=== PATIENT | female | born 1990 | race Caucasian/White ===

== ENCOUNTER 2016-11-24 15:52 | Emergency (ER) | payer OTHER ==
[~2016-11-24] VITALS: Ht 154.9 cm; Wt 54.4 kg
--- NOTE | 2016-11-24 17:11 | ED EAR COMPLAINT ---
History of Present Illness General Chief Complaint: Ear Complaints Stated Complaint: EAR PAIN, CONGESTION Source: patient, old records Exam Limitations: no limitations Vital Signs & Intake/Output Vital Signs & Intake/Output Vital Signs Date Time Temp Pulse Resp B/P Pulse O2 O2 Flow FiO2 Ox Delivery Rate 11/24 1607 98.8 96 18 119/79 99 Room Air Allergies Coded Allergies: NO KNOWN ALLERGIES (02/14/12) Reconcile Medications Amoxicillin 875 MG TABLET 1 TAB PO BID sinusitis Oxymetazoline HCl (Afrin) 0.05 % SPRAY 2 SPRAY NASB BID sinusitis Prednisone 20 MG TABLET 1 TAB PO BID sinusitis Triage Note: PT TO ER C/C B/L EAR PAIN AND HEARING LOSS X 1 WEEK. +COUGH. AFEBRILE Triage Nurses Notes Reviewed? yes Onset: 2 weeks Duration: week(s):, constant, continues in ED, getting worse Timing: recent history Severity: moderate No Modifying Factors: none Associated Symptoms: cough LMP (ages 10-50): unknown : No Patient currently breastfeeds: No HPI: 2 weeks prior to admission patient complains of nasal congestion sore throat increasing left ear pain with decreasing hearing. She denies fever chills nausea vomiting diarrhea abdominal pain chest pain shortness breath headache dysuria rash bleeding . Past History Travel History Traveled to [place] past 21 day No Medical History Any Pertinent Medical History? none Surgical History Surgical History: non-contributory Psychosocial History What is your primary language Kyrgyz Tobacco Use: Current Daily Use Daily Tobacco Use Amount/Type: => 5 Cigarettes daily Family History Hx Contributory? No Review of Systems Review of Systems Constitutional: Reports: see HPI, malaise. EENTM: Reports: see HPI, ear pain, hearing changes, nasal congestion, throat pain. Respiratory: Reports: see HPI, cough. Cardiovascular: Reports: no symptoms. GI: Reports: no symptoms. Genitourinary: Reports: no symptoms. Musculoskeletal: Reports: no symptoms. Skin: Reports: no symptoms. Neurological/Psychological: Reports: no symptoms. Hematologic/Endocrine: Reports: no symptoms. Immunologic/Allergic: Reports: no symptoms. All Other Systems: Reviewed and Negative Physical Exam Physical Exam General Appearance: well developed/nourished, mild distress Head: atraumatic Eyes: Bilateral: normal appearance, PERRL, EOMI. Ears: Left: Tympanic red, Tympanic bulging. Right: Tympanic dull. Nose: discharge Mouth/Throat: pharynx swelling, tonsillar swelling Neck: normal inspection, supple, lymphadenopathy (R), lymphadenopathy (L) Cardiovascular/Respiratory: normal breath sounds, regular rate/rhythm Back: normal inspection, normal range of motion, no vertebral tenderness Neurologic/Psych: awake, alert, oriented x 3, normal mood/affect Skin: intact, normal color, warm/dry Progress Differential Diagnoses I considered the following diagnoses in my evaluation of the patient: otitis media otitis externa sinusitis Plan of Care: Current Medications Sig/Carlos Start time Last Medication Dose Stop Time Status Admin Amoxicillin 750 MG ONCE ONE 11/24 1714 UNVr (Amoxil) 11/24 1715 Ibuprofen 600 MG ONCE ONE 11/24 1714 UNVr (Motrin) 11/24 1715 Oxymetazoline HCl 2 SPRAY ONCE ONE 11/24 1714 UNVr (Afrin) 11/24 1715 Prednisone 60 MG ONCE ONE 11/24 1714 UNVr 11/24 1715 Initial ED EKG: none Departure Departure Time of Disposition: 1717 Disposition: HOME OR SELF CARE Condition: Stable Clinical Impression Primary Impression: Otitis media Qualifiers: Otitis media type: unspecified Laterality: bilateral Chronicity: unspecified Qualified Code: H66.93 - Otitis media, unspecified, bilateral Secondary Impressions: Sinusitis, acute Qualifiers: Sinusitis location: unspecified location Recurrence: not specified as recurrent Qualified Code: J01.90 - Acute sinusitis, unspecified Referrals: PATIENT HAS NO PRIMARY CARE DR (PCP/Family) Departure Forms: Customer Survey General Discharge Information Prescriptions: Current Visit Scripts Amoxicillin 1 TAB PO BID #20 TAB Prednisone 1 TAB PO BID #10 TAB Oxymetazoline HCl (Afrin) 2 SPRAY NASB BID #30 ML Ibuprofen 1 TAB PO Q6PRN PRN pain #50 TAB with food
[2016-11-24] MEDS ORDERED: AMOXICILLIN875 M1 PO (17:24)
[2016-11-24] MEDS ORDERED: PREDNISONE20 M1 PO (17:24)
[2016-11-24] MEDS ORDERED: AFRIN30 ML NASB (17:24)
[2016-11-24] MEDS ORDERED: IBUPROFEN600 M1 PO (17:25)
[2016-11-24 17:33] VITALS: BP 100/58
== END 2016-11-24 17:37 ==
LOC: ERH 15:52
DX: H66.93 Otitis media, unspecified, bilateral (principal); J01.90 Acute sinusitis, unspecified; F17.210 Nicotine dependence, cigarettes, uncomplicated

== ENCOUNTER 2017-01-10 23:26 | Emergency (ER) | payer OTHER ==
[~2017-01-10] VITALS: Ht 154.9 cm; Wt 53.1 kg
[~2017-01-10 23:26] MED LIST: AFRIN30 ML NASB; AMOXICILLIN875 M1 PO; IBUPROFEN600 M1 PO; PREDNISONE20 M1 PO
--- NOTE | 2017-01-10 23:39 | ED GI/GU/ABDOMINAL COMPLAINT ---
History of Present Illness General Chief Complaint: Abdominal Pain/Flank Pain Stated Complaint: RT SIDE ABD PAIN X'S 4 HRS Source: patient Exam Limitations: no limitations Vital Signs & Intake/Output Vital Signs & Intake/Output Vital Signs Date Time Temp Pulse Resp B/P Pulse O2 O2 Flow FiO2 Ox Delivery Rate 01/10 2340 97.9 93 20 112/69 97 Room Air ED Intake and Output 01/11 0000 01/10 1200 Intake Total 0 Output Total Balance 0 Intake, Oral 0 Patient 117 lb Weight Allergies Coded Allergies: NO KNOWN ALLERGIES (02/14/12) Reconcile Medications Amoxicillin 875 MG TABLET 1 TAB PO BID sinusitis Doxycycline Hyclate 100 MG TABLET 1 TAB PO BID PID Ibuprofen 800 MG TABLET 1 TAB PO TID PRN PAIN Ibuprofen 600 MG TABLET 1 TAB PO Q6PRN PRN pain with food Metronidazole (Flagyl) 500 MG TABLET 1 TAB PO BID PID Oxycodone HCl/Acetaminophen (Percocet 5-325 MG Tablet) 5 MG-325 MG TABLET 1 TAB PO Q4-6 PRN BREAKTHROUGH PAIN Oxymetazoline HCl (Afrin) 0.05 % SPRAY 2 SPRAY NASB BID sinusitis Prednisone 20 MG TABLET 1 TAB PO BID sinusitis Triage Nurses Notes Reviewed? yes ? N Is pt currently ? No Onset: Abrupt Duration: hour(s): (4) Timing: single episode today Quality/Severity: sharpness, severe Location: right lower quadrant Radiation: back Activities at Onset: AT WORK Prior Abdominal Problems: none No Modifying Factors: none HPI: 26-year-old female with sudden onset of right lower quadrant abdominal pain 4 hours prior to arrival while at work. Pain is severe, sharp, 10 x 10. She feels some radiation to her right lower back. Last vessel. Was on December 25. Denies chance of as she has history of bilateral tubal ligation. History of previous ovarian cyst rupture. Denies any history of previous renal stones. She was feeling fine until 4 hours ago. She took 4 OTC motrin without relief. Past History Medical History Any Pertinent Medical History? see below for history Gastrointestinal: OVARIAN CYST Surgical History Surgical History: tubal ligation Psychosocial History What is your primary language Setswana Family History Hx Contributory? No Review of Systems Review of Systems Constitutional: Denies: chills, fever. EENTM: Reports: no symptoms. Respiratory: Denies: short of breath. Cardiovascular: Denies: chest pain. GI: Reports: abdominal pain, nausea. Genitourinary: Reports: no symptoms. Musculoskeletal: Reports: back pain. Skin: Reports: no symptoms. Neurological/Psychological: Reports: no symptoms. Hematologic/Endocrine: Denies: bruising, bleeding, polyuria, polydipsia. Immunologic/Allergic: Denies: splenectomy. All Other Systems: Reviewed and Negative Physical Exam Physical Exam General Appearance: well developed/nourished, alert, awake Head: atraumatic, normal appearance Eyes: Bilateral: normal appearance, PERRL, EOMI. Ears, Nose, Throat, Mouth: hearing grossly normal, moist mucous membrane Neck: normal inspection, supple, full range of motion Respiratory: normal breath sounds, chest non-tender, no respiratory distress Cardiovascular: regular rate/rhythm Peripheral Pulses: 2+ radial (R), 2+ radial (L) Gastrointestinal: soft, tenderness (RLQ), POSITIVE REBOUND/GUARDING Extremities: normal range of motion Neurologic/Psych: no motor/sensory deficits, awake, alert, oriented x 3 Skin: intact, normal color, warm/dry Core Measures ACS in differential dx? No Severe Sepsis Present: No Septic Shock Present: No Progress Differential Diagnosis: appendicitis, diverticulitis, ectopic , ischemic bowel, kidney stone, ovarian cyst, ovarian torsion, PID/cervicitis, perforated viscous Plan of Care: Orders Procedure Date/time Status TRICHOMONAS 01/11 434 Active POTASSIUM HYDROXIDE (EUFEMIA) 01/11 434 Active GENITAL CULTURE 01/11 434 Active CHLAMYDIA-GC DNA PROBE 01/11 434 Active URINALYSIS 01/11 7 Complete PARTIAL THROMBOPLASTIN TIME 01/11 7 Complete PROTHROMBIN TIME 01/11 7 Complete HUMAN BETA HCG SCREEN 01/11 7 Complete COMPREHENSIVE METABOLIC PANEL 01/11 7 Complete CBC WITHOUT DIFFERENTIAL 01/11 7 Complete Current Medications Sig/Carlos Start time Last Medication Dose Stop Time Status Admin Oxycodone/ 1 TAB ONCE ONE 01/11 0500 UNVr Acetaminophen 01/11 0501 (Percocet) Azithromycin 1,000 MG ONE ONE 01/11 0445 UNVr (Zithromax) 01/11 446 Laboratory Tests 01/11/17 0013: Anion Gap 9, Estimated GFR > 60, BUN/Creatinine Ratio 15.0, Glucose 104 H, Calcium 10.4 H, Total Bilirubin 0.5, AST 21, ALT 27, Alkaline Phosphatase 43, Total Protein 6.8, Albumin 4.5, Globulin 2.3, Albumin/Globulin Ratio 2.0, Total Beta HCG NEGATIVE, PT 10.5, INR 1.00, APTT 44 H, CBC w Diff NO MAN DIFF REQ, RBC 4.14 L, MCV 88.9, MCH 30.0, RDW 13.4, MPV 8.4, Gran % 60.5, Lymphocytes % 31.6, Monocytes % 6.1, Eosinophils % 1.7, Basophils % 0.1, Absolute Granulocytes 5.5, Absolute Lymphocytes 2.9, Absolute Monocytes 0.6, Absolute Eosinophils 0.2, Absolute Basophils 0, PUBS MCHC 33.8, Urinalysis HEAVY H, Urine Color YEL, Urine Clarity CLDY H, Urine pH 7.5, Ur Specific [place] 1.020, Urine Protein NEG, Urine Ketones NEG, Urine Nitrite NEG, Urine Bilirubin NEG, Urine Urobilinogen 0.2, Ur Leukocyte Esterase NEG, Ur Microscopic SEDIMENT EXAMINED, Ur Epithelial Cells FEW, Urine Hemoglobin NEG, Urine Glucose NEG Microbiology 01/11 434 GENITAL: GC DNA Probe - ORD 01/11 434 GENITAL: Chlamydia DNA Probe (LYNNE) - ORD 01/11 434 GENITAL: EUFEMIA Preparation - ORD 01/11 434 GENITAL: Trichomonas Preparation - ORD 01/11 434 GENITAL: Genital Culture - ORD 1:32 am patient transported to [facility]. 2:58 am patient returned from [facility]. pain 05/05. dilaudid ordered. CT C/W HYDROSALPYX. PELVIC EXAMINATION PERFORMED, CULTURES TAKEN. IM/PO ABX GIVEN. (ANUPAM KARIMI,ABBI) Diagnostic Imaging: Viewed by Me: CT Scan. Discussed w/RAD: CT Scan. Radiology Impression: CT REPORT - RIGHT HYDROSALPYX NO FREE FLUID NO OVARIAN CYST Initial ED EKG: none Departure Departure Time of Disposition: 457 Disposition: HOME OR SELF CARE Condition: Stable Clinical Impression Primary Impression: Hydrosalpinx Secondary Impressions: PID (acute pelvic inflammatory disease) Referrals: PATIENT HAS NO PRIMARY CARE DR (PCP/Family) Additional Instructions: TAKE THE ANTIBIOTICS DIRECTED AND FOLLOW UP WITH YOUR OBGYN DOCTOR AND WITH OUTPATIENT ULTRASOUND. RETURN NEEDED. Departure Forms: Customer Survey General Discharge Information Prescriptions: Current Visit Scripts Doxycycline Hyclate 1 TAB PO BID #28 TAB Metronidazole (Flagyl) 1 TAB PO BID #28 TAB Ibuprofen 1 TAB PO TID PRN PAIN #20 TAB Oxycodone HCl/Acetaminophen (Percocet 5-325 MG Tablet) 1 TAB PO Q4-6 PRN BREAKTHROUGH PAIN #8 TAB
[2017-01-11 00:46] LABS: ABSOLUTE BASOPHIL COUNT 0 /CUMM (0.0-0.2); ABSOLUTE EOSINOPHIL COUNT 0.2 /CUMM (0.0-0.7); ABSOLUTE GRANULOCYTE CT 5.5 /CUMM (1.4-6.5); ABSOLUTE LYMPH COUNT 2.9 /CUMM (1.2-3.4); ABSOLUTE MONOCYTE COUNT 0.6 /CUMM (0.10-0.60); BASOPHIL % 0.1 % (0.0-2.0); EOSINOPHIL % 1.7 % (0-5); GRANULOCYTE % 60.5 % (42.2-75.2); HEMATOCRIT 36.8 % (37-47); MEAN CORPUSCULAR HGB CONC 33.8 G/DL (33.0-37.0); MEAN CORPUSCULAR VOLUME 88.9 FL (81.0-99.0); MEAN PLATELET VOLUME 8.4 FL (7.4-10.4); PLATELET COUNT 219 /CUMM (130-400); RBC DISTRIBUTION WIDTH 13.4 % (11.5-14.5); RED BLOOD CELL CT 4.14 /CUMM (4.20-5.40); WHITE BLOOD CELL COUNT 9.1 /CUMM (4.8-10.8)
[2017-01-11 00:49] LABS: PT 10.5 SEC (9.4-12.5); PTT 44 SEC (25-37)
[2017-01-11] MEDS ORDERED: IBUPROFEN800 M1 PO (05:01)
[2017-01-11] MEDS ORDERED: FLAGYL500 MG PO (05:01)
[2017-01-11] MEDS ORDERED: PERCOCET 5-3251 EACH PO (05:01)
[2017-01-11] MEDS ORDERED: DOXYCYCLINE HY100 M4 PO (05:01)
[2017-01-11 05:13] VITALS: BP 112/61
== END 2017-01-11 05:24 ==
LOC: ERH 23:26
PROVIDERS: Emergency Medicine
DX: N70.11 Chronic salpingitis (principal); N73.9 Female pelvic inflammatory disease, unspecified
CPT/HCPCS: 87070; 81001; 87491; 87591; 96361; 96374; 96375; J0696; J1885

== ENCOUNTER → 2017-01-22 | Day surgery (SDC) | payer OTHER ==
[~2017-01-22] VITALS: Ht 154.9 cm; Wt 50.3 kg
[~2017-01-22] MED LIST changes: +DOXYCYCLINE HY100 M4 PO; +FLAGYL500 MG PO; +IBUPROFEN800 M1 PO; +PERCOCET 5-3251 EACH PO
--- NOTE | 2017-01-23 11:09 | Operative Report ---
Operative/Inv Procedure Report Surgery Date: 01/22/17 Name of Procedure: Laparoscopic left ovarian cystectomy Pre-Operative Diagnosis: Bilateral ovarian cysts Post-Operative Diagnosis: Left ovarian cyst Estimated Blood Loss: less than 50ml Surgeon/Spring Forger: JIMMY VILLANUEVA MD Anesthesia: general endotracheal tube Operative/Procedure Note Note: The patient was brought to the operating room and placed on the OR table in the dorsal supine position. She was given adequate general anesthesia and successfully intubated. She was repositioned into modified dorsal lithotomy and prepped and draped in the usual sterile fashion. A weighted speculum was inserted into the vagina and with the help of a Eduin retractor a single- toothed tenaculum was attached to the anterior lip of the cervix. An acorn cannula was inserted into the cervix and attached to the tenaculum. A Gordon catheter was placed into the bladder and drained clear yellow urine. Attention was then paid to the abdomen. The surgeon's gloves were changed. An infraumbilical skin incision was made with the scalpel and a Veress needle was placed into the abdominal cavity. The abdomen was insufflated with CO2 gas under high flow and low pressure until an adequate pneumoperitoneum had been achieved. At this point the Veress needle was removed and replaced with a 5 mm disposable trocar. Through the sleeve the camera was placed and good anatomic position and hemostasis was noted. The patient was placed into Trendelenburg position. Suprapubic stab incision was made with the scalpel and a 5 mm disposable trocar was inserted under direct visualization. Through the sleeve a blunt probe was placed for manipulation of the pelvic organs. The uterus and bladder flap appeared to be normal. The right ovary was normal as well as the fallopian tube. The left fallopian tube was normal and left ovary appeared to have a 6 cm cyst. The cyst appeared benign. A left lower quadrant stab incision was made and a 5 mm disposable trocar was inserted through this site as well with good hemostasis. Using the 2 operative ports the ovary was grasped with an atraumatic clamp and held in place while a suction aspirator was placed into the ovary. No fluid was removed. At this point the electrocautery was placed and the ovarian cyst was opened. Protein material as well as status post tissue was noted extruding from the cyst area. The cyst was completely excised and dropped into the lower abdominal cavity. The defect in the ovary was then coagulated using electrocautery as well as a Kleppinger bipolar cautery. Hemostasis was good. The suprapubic trocar sleeve was removed and replaced with a 11 mm trocar under direct visualization. Through this trocar sleeve the grasper was placed and the cyst was removed intact and sent to pathology. Minimal pelvis were then copiously irrigated. The surgical site was noted to be hemostatic and the CO2 gas was allowed to escape the abdomen. The instruments were removed. The fascia in the midline was closed with 0 Polysorb and one interrupted suture. The skin was closed on all 3 wounds using 3-0 Biosyn in an interrupted fashion the wounds were dressed. The vaginal instruments removed and hemostasis was good. The patient was then awakened and sent to recovery in good condition All needle, sponge, and instrument counts were correct at the end of the procedure 2.
== END ==
LOC: STS 03:48
DX: N83.202 Unspecified ovarian cyst, left side (principal); N83.201 Unspecified ovarian cyst, right side
CPT/HCPCS: 88305; J2250

== ENCOUNTER 2018-02-13 20:09 | Emergency (ER) | payer OTHER ==
[~2018-02-13] VITALS: Ht 154.9 cm; Wt 45.4 kg
--- NOTE | 2018-02-13 20:51 | ED HEADACHE COMPLAINT ---
History of Present Illness General Chief Complaint: Headache Stated Complaint: PT HAS A MIGRAINE Source: patient, old records Exam Limitations: no limitations Vital Signs & Intake/Output Vital Signs & Intake/Output Vital Signs Date Time Temp Pulse Resp B/P B/P Pulse O2 O2 Flow FiO2 Mean Ox Delivery Rate 02/13 2255 83 20 110/72 96 Room Air 02/13 2017 97.8 86 18 115/69 98 Room Air ED Intake and Output 02/14 0000 02/13 1200 Intake Total 1000 Output Total Balance 1000 Intake, IV 1000 Patient 99 lb 15.99 oz Weight Weight Estimated Measurement Method Allergies Coded Allergies: No Known Allergies (01/16/17) Reconcile Medications Ibuprofen 800 MG TABLET 1 TAB PO TID PRN pain Ondansetron (Zofran Odt) 4 MG TAB.RAPDIS 1 TAB SL TID PRN NAUSEA Oxycodone HCl/Acetaminophen (Percocet 5-325 MG Tablet) 5 MG-325 MG TABLET 1 TAB PO 4XDP PRN PAIN TEN...[id number] Oxycodone HCl/Acetaminophen (Percocet 5-325 MG Tablet) 5 MG-325 MG TABLET 1 TAB PO BID PRN PAIN Triage Note: RECEIVED 27 YO FEMALE WITH HX OF MIGRAINE H/A'S, C/O SEVERE HEADACHE BEHIND RIGHT EYE X 2 DAYS. + NAUSEA, LIGHTHEADED, + PHOTOPHOBIA. PT TOOK IBUPROFEN, NAPOXEN AND EXCEDRIN WIITH NO HELP. Triage Nurses Notes Reviewed? yes Onset: Gradual Duration: day(s): (2), constant Timing: recent history Quality/Severity: moderate, achy, constant, pressure Severity Numbers: 7 Head Injury Location: frontal No Modifying Factors: none Associated Symptoms: denies : No Patient currently breastfeeds: No HPI: 27-year-old female with history of ovarian cyst migraines for which she was previously on propanolol and fioricet several years ago presents to the ER complaining of right-sided headache since 2 days ago. She denies recent fall or trauma. No vision changes no neck pain or stiffness. She is not followed by a neurologist regarding her headaches. She's been taking ibuprofen naproxen Excedrin without improvement. No tinnitus dizziness lightheadedness. No recent cough fever chills. She does report nausea however denies vomiting (Cathie WHEAT,Arnaud) Past History Travel History Traveled to [place] past 21 day No Medical History Any Pertinent Medical History? see below for history Neurological: migraine EENT: NONE Cardiovascular: NONE Respiratory: NONE Gastrointestinal: OVARIAN CYST Hepatic: NONE Renal: NONE Musculoskeletal: NONE Psychiatric: NONE Endocrine: NONE Blood Disorders: NONE Cancer(s): NONE Surgical History Surgical History: tubal ligation Psychosocial History What is your primary language Namibian Tobacco Use: Current Daily Use Daily Tobacco Use Amount/Type: => 5 Cigarettes daily Family History Hx Contributory? No (Arnaud Umaña) Review of Systems Review of Systems Constitutional: Reports: see HPI. Comments Review of systems: See HPI, All other systems negative. Constitutional, no chills no fever, no malaise HEENT: no sore throat no congestion, no ear pain Cardiovascular: No chest pain , no palpitation Skin: no rashes, no change in skin Respiratory: No dyspnea no cough no sputum GI: nausea no vomiting, no diarrhea : No dysuria No hematuria, no frequency Muscle skeletal: No joint pain, no back pain Neurologic: headache Heme/endocrine: No bruising Immunology: No lymphadenopathy (Arnaud Umaña) Physical Exam Physical Exam General Appearance: well developed/nourished, alert, awake Cranial Nerves: normal hearing, normal speech, PERRL Comments: Well-developed well-nourished person in no acute distress HEENT: Normal EENT exam; PERRL, no tenderness over the temporal artery EOMI, no nystagmus. HEAD is atraumatic. moist mucous membranes. Neck: Supple, normal range of motion negative Brudzinski's negative Kernig's Back: Full range of motion Cardiovascular: Regular rate and rhythms no murmurs Respiratory: No respiratory distress. Patient speaking in full complete sentences. Breath sounds clear to auscultation bilaterally: NO W/R/R Extremity: No edema, full range of motion of extremities Neuro: Alert oriented x3, motor sensory normal, cranial nerves II through XII grossly intact. There were no obvious focal neurologic abnormalities. Skin: No appreciable rash on exposed skin, skin is warm and dry. Psych: Mood and affect is normal, memory and judgment is normal. Core Measures Sepsis Present: No Sepsis Focused Exam Completed? No (Arnaud Umaña) Progress Differential Diagnosis: cluster HUSTON, encephalitis, IC mass/tumor, intracranial Hem., meningitis, migraine HUSTON, musculoskeletal pain, subarach. Hem., tension HUSTON, temporal arteritis Plan of Care: Current Medications Sig/Carlos Start time Last Medication Dose Stop Time Status Admin Morphine Sulfate 2 MG ONCE ONE 02/13 2230 UNVr (Morphine) 02/13 2231 Patient medicated with Toradol Benadryl morphine and Zofran IV fluids 02/13/2018 10:55:13 PM patient feeling improved I discussed with her plan of care I advised close follow-up with neurology regarding brushes were discussed at length she feels comfortable with plan we'll send her home with Zofran and Percocet she's had no vomiting here she feels comfortable this plan cleared for discharge (Arnaud Umaña) Departure Departure Disposition: HOME OR SELF CARE Condition: Stable Clinical Impression Primary Impression: Migraine Referrals: Eileen KARIMI,Arnaud Puga Patient Has No Primary Care Dr (PCP/Family) Additional Instructions: Follow up with neurologist dr ahmadi. zofran if needed for nausea. percocet for breakthrough pain- this is a narcotic no driving or drinking alcohol while taking. ibuprofen 800mg every 8 hours. return with any concerns Departure Forms: Customer Survey General Discharge Information Prescriptions: Current Visit Scripts Oxycodone HCl/Acetaminophen (Percocet 5-325 MG Tablet) 1 TAB PO BID PRN PAIN #10 TAB Ondansetron (Zofran Odt) 1 TAB SL TID PRN NAUSEA #10 TAB (Arnaud Umaña) PA/LOSS PREVENTION MANAGER Co-Sign Statement Statement: ED Attending supervision documentation- [] I saw and evaluated the patient. I have also reviewed all the pertinent lab results and diagnostic results. I agree with the findings and the plan of care as documented in the PA's/LOSS PREVENTION MANAGER's documentation. [X] I have reviewed the ED Record and agree with the PA's/LOSS PREVENTION MANAGER's documentation. [] Additions or exceptions (if any) to the PAs/LOSS PREVENTION MANAGER's note and plan are summarized below: [] (Skip Chapman DO)
[2018-02-13] MEDS ORDERED: ZOFRAN ODT4 M1 SL (22:27)
[2018-02-13] MEDS ORDERED: PERCOCET 5-3251 EACH PO (22:27)
[2018-02-13 22:55] VITALS: BP 110/72
== END 2018-02-13 22:57 ==
LOC: ERH 20:09
DX: G43.909 Migraine, unspecified, not intractable, without status migrainosus (principal)
CPT/HCPCS: 96374; 96375; 96376; J1200; J1885; J2405